=== PATIENT | male | born 1975 | race Caucasian/White ===

== ENCOUNTER 2025-06-11 14:01 | Observation (INO) ==
[2025-06-11] MEDS: PANTOPRAZOLE 40 MG VIAL IV ONE (15:56)
[2025-06-11] MEDS: MAG HYDROX/AL HYDROX/SIMETH 30 ML ORAL.SUSP PO ONE (15:56)
[2025-06-11 16:02] LABS: Basophils # (Auto) 0.01 K/mcL (0.00-0.30); Basophils % (Auto) 0.2 % (0.0-2.0); Eosinophils # (Auto) 0 K/mcL (0.00-0.70); Eosinophils % (Auto) 0 % (0.0-7.0); Hematocrit 43.9 % (40.1-51.0); Hemoglobin 15.1 g/dL (13.7-17.5); Lymphocytes # (Auto) 1.28 K/mcL (1.50-4.80); Lymphocytes % (Auto) 26.2 % (15.5-49.0); Mean Corpuscular HGB Conc 34.4 g/dL (31.0-36.0); Monocytes # (Auto) 0.43 K/mcL (0.10-0.90); Monocytes % (Auto) 8.8 % (1.0-12.0); Neutrophils % (Auto) 64.6 % (38.0-78.0); Platelet Count 185 K/mcL (140-440); RBC 5.00 M/mcL (4.63-6.08); WBC 4.9 K/mcL (4.5-11.0)
[2025-06-11 16:19] LABS: ALT/SGPT 56 U/L (<40); AST/SGOT 31 U/L (<40); Albumin 4.6 gm/dL (3.2-5.2); Albumin/Globulin Ratio 1.7 (1.0-2.3); Alkaline Phosphatase 50 U/L (39-117); Anion Gap 9.0 (8.0-16.0); Bilirubin,Total 1.0 mg/dL (0.1-1.0); Blood Urea Nitrogen 17 mg/dL (6-20); Calcium 9.3 mg/dL (8.6-10.4); Carbon Dioxide 24 mmol/L (22-30); Chloride 106 mmol/L (96-108); Globulin 2.7 gm/dL (2.2-3.7); Glucose 89 mg/dL (70-105); Potassium 4.0 mmol/L (3.3-5.1); Sodium 139 mmol/L (133-145)
[2025-06-11 16:57] LABS: Bilirubin,Urine NEGATIVE (Negative); Color,Urine LT. YELLOW; Glucose,Urine (UA) NEGATIVE (Negative); Ketones,Urine NEGATIVE (Negative); Leukocyte Esterase,Urine NEGATIVE /uL (Negative); PH,Urine 7.0 (5.0-9.0); Protein,Urine NEGATIVE (Negative); Specific Gravity,Urine <= 1.005 (1.000-1.035); Urobilinogen,Urine 0.2 mg/dL
[2025-06-11] MEDS: PIPERACILLIN SODIUM/TAZOBACTAM 3.375 GM in DEXTROSE 5% IN WATER 50 ML IV ONE (17:31)
[2025-06-11] MEDS: 0.9 % SODIUM CHLORIDE 1,000 ML IV SCH (20:08)
[2025-06-11] MEDS: PIPERACILLIN SODIUM/TAZOBACTAM 4.5 GM in DEXTROSE 5% IN WATER 100 ML IV SCH ×2 (20:09→22:15)
[2025-06-12 05:29] LABS: Basophils # (Auto) 0.02 K/mcL (0.00-0.30); Basophils % (Auto) 0.4 % (0.0-2.0); Eosinophils # (Auto) 0 K/mcL (0.00-0.70); Eosinophils % (Auto) 0 % (0.0-7.0); Hematocrit 43.5 % (40.1-51.0); Hemoglobin 14.3 g/dL (13.7-17.5); Lymphocytes # (Auto) 1.47 K/mcL (1.50-4.80); Lymphocytes % (Auto) 31.3 % (15.5-49.0); Mean Corpuscular HGB Conc 32.9 g/dL (31.0-36.0); Monocytes # (Auto) 0.45 K/mcL (0.10-0.90); Monocytes % (Auto) 9.6 % (1.0-12.0); Neutrophils % (Auto) 58.7 % (38.0-78.0); Platelet Count 165 K/mcL (140-440); RBC 4.84 M/mcL (4.63-6.08); WBC 4.7 K/mcL (4.5-11.0)
[2025-06-12 05:48] LABS: ALT/SGPT 49 U/L (<40); AST/SGOT 24 U/L (<40); Albumin 4.1 gm/dL (3.2-5.2); Albumin/Globulin Ratio 1.8 (1.0-2.3); Alkaline Phosphatase 44 U/L (39-117); Anion Gap 6.0 (8.0-16.0); Bilirubin,Direct 0.5 mg/dL (<0.3); Bilirubin,Total 1.3 mg/dL (0.1-1.0); Blood Urea Nitrogen 15 mg/dL (6-20); Calcium 8.7 mg/dL (8.6-10.4); Carbon Dioxide 28 mmol/L (22-30); Chloride 106 mmol/L (96-108); Globulin 2.3 gm/dL (2.2-3.7); Glucose 93 mg/dL (70-105); Phosphorous 3.8 mg/dL (2.5-4.5); Potassium 4.1 mmol/L (3.3-5.1); Sodium 140 mmol/L (133-145); Triglycerides 83 mg/dL (<150); Uric Acid 5.9 mg/dL (2.5-8.0)
[2025-06-12] MEDS: POLYETHYLENE GLYCOL 3350 17 GM PACKET PO SCH (09:03)
[2025-06-12] MEDS: PANTOPRAZOLE 40 MG VIAL IV SCH (16:27)
[2025-06-13 06:31] LABS: Basophils # (Auto) 0.01 K/mcL (0.00-0.30); Basophils % (Auto) 0.2 % (0.0-2.0); Eosinophils # (Auto) 0 K/mcL (0.00-0.70); Eosinophils % (Auto) 0 % (0.0-7.0); Hematocrit 43.2 % (40.1-51.0); Hemoglobin 14.6 g/dL (13.7-17.5); Lymphocytes # (Auto) 1.31 K/mcL (1.50-4.80); Lymphocytes % (Auto) 30.0 % (15.5-49.0); Mean Corpuscular HGB Conc 33.8 g/dL (31.0-36.0); Monocytes # (Auto) 0.40 K/mcL (0.10-0.90); Monocytes % (Auto) 9.2 % (1.0-12.0); Neutrophils % (Auto) 60.6 % (38.0-78.0); Platelet Count 166 K/mcL (140-440); RBC 4.81 M/mcL (4.63-6.08); WBC 4.4 K/mcL (4.5-11.0)
[2025-06-13 06:47] LABS: ALT/SGPT 45 U/L (<40); AST/SGOT 24 U/L (<40); Albumin 4.2 gm/dL (3.2-5.2); Albumin/Globulin Ratio 1.7 (1.0-2.3); Alkaline Phosphatase 44 U/L (39-117); Anion Gap 6.0 (8.0-16.0); Bilirubin,Direct 0.4 mg/dL (<0.3); Bilirubin,Total 1.1 mg/dL (0.1-1.0); Blood Urea Nitrogen 12 mg/dL (6-20); Calcium 8.9 mg/dL (8.6-10.4); Carbon Dioxide 28 mmol/L (22-30); Chloride 106 mmol/L (96-108); Globulin 2.5 gm/dL (2.2-3.7); Glucose 89 mg/dL (70-105); Phosphorous 3.6 mg/dL (2.5-4.5); Potassium 4.0 mmol/L (3.3-5.1); Sodium 140 mmol/L (133-145); Triglycerides 79 mg/dL (<150); Uric Acid 4.4 mg/dL (2.5-8.0)
[2025-06-13] MEDS ORDERED: ROCURONIUM 10 MG/ML ML IV ONE (07:49)
[2025-06-13] MEDS ORDERED: PROPOFOL 200 MG/20 ML VIAL IV ONE (07:49)
[2025-06-13] MEDS ORDERED: DEXAMETHASONE 10 MG/ML VIAL ONE (07:49)
[2025-06-13] MEDS ORDERED: fentaNYL 100 MCG/2 ML VIAL ONE (07:49)
[2025-06-13] MEDS ORDERED: GLYCOPYRROLATE 0.2 MG/ML VIAL IV ONE (07:49)
[2025-06-13] MEDS ORDERED: SUGAMMADEX SODIUM 200 MG/2 ML VIAL IV ONE (07:50)
[2025-06-13] MEDS ORDERED: IPRATROPIUM/ALBUTEROL 3 ML AMPUL.NEB NEB PRN (09:02)
[2025-06-13] MEDS ORDERED: ePHEDrine 50 MG/5 ML SYRINGE (ANEST) IV ONE (09:03)
[2025-06-13] MEDS: ACETAMINOPHEN 1,000 MG/100 ML BAG IV ONE (10:05)
[2025-06-13] MEDS ORDERED: TRANEXAMIC ACID 1,000 MG/10 ML VIAL ONE (10:08)
[2025-06-13] MEDS: METHOCARBAMOL 1,000 MG/10 ML VIAL IV ONE (10:32)
[2025-06-13] MEDS: fentaNYL 100 MCG/2 ML VIAL IV ONE (10:41)
[2025-06-13] MEDS: ONDANSETRON 4 MG/2 ML VIAL IV PRN (11:04)
[2025-06-13] MEDS: HYDROmorphone 0.5 MG/0.5 ML SYRINGE IV PRN (11:04)
[2025-06-13] MEDS: 0.9 % SODIUM CHLORIDE 1,000 ML IV SCH (13:10)
[2025-06-13] MEDS: 0.9 % SODIUM CHLORIDE 10 ML SYRINGE IV SCH (14:53)
[2025-06-13] MEDS: ACETAMINOPHEN 1,000 MG/100 ML BAG IV SCH (15:08)
[2025-06-13] MEDS: KETOROLAC 30 MG/ML VIAL IV PRN (15:09)
[2025-06-13] MEDS: BENZOCAINE ONE 20% 1 SPRAY TOPICAL PRN (17:13)
[2025-06-14 06:36] LABS: ALT/SGPT 315 U/L (<40); AST/SGOT 211 U/L (<40); Albumin 4.0 gm/dL (3.2-5.2); Albumin/Globulin Ratio 1.7 (1.0-2.3); Alkaline Phosphatase 77 U/L (39-117); Anion Gap 8.0 (8.0-16.0); Bilirubin,Direct 0.5 mg/dL (<0.3); Bilirubin,Total 1.0 mg/dL (0.1-1.0); Blood Urea Nitrogen 10 mg/dL (6-20); Calcium 8.5 mg/dL (8.6-10.4); Carbon Dioxide 22 mmol/L (22-30); Chloride 107 mmol/L (96-108); Globulin 2.4 gm/dL (2.2-3.7); Glucose 104 mg/dL (70-105); Phosphorous 3.5 mg/dL (2.5-4.5); Potassium 4.1 mmol/L (3.3-5.1); Sodium 137 mmol/L (133-145); Triglycerides 53 mg/dL (<150); Uric Acid 3.3 mg/dL (2.5-8.0)
[2025-06-14 06:41] LABS: Basophils # (Auto) 0 K/mcL (0.00-0.30); Basophils % (Auto) 0 % (0.0-2.0); Eosinophils # (Auto) 0 K/mcL (0.00-0.70); Eosinophils % (Auto) 0 % (0.0-7.0); Hematocrit 40.2 % (40.1-51.0); Hemoglobin 13.5 g/dL (13.7-17.5); Lymphocytes # (Auto) 1.03 K/mcL (1.50-4.80); Lymphocytes % (Auto) 14.3 % (15.5-49.0); Mean Corpuscular HGB Conc 33.6 g/dL (31.0-36.0); Monocytes # (Auto) 0.50 K/mcL (0.10-0.90); Monocytes % (Auto) 6.9 % (1.0-12.0); Neutrophils % (Auto) 78.5 % (38.0-78.0); Platelet Count 168 K/mcL (140-440); RBC 4.47 M/mcL (4.63-6.08); WBC 7.2 K/mcL (4.5-11.0)
[2025-06-14 15:43] VITALS: TEMP 97.9; O2SAT 100
== END 2025-06-14 15:52 | disposition home or self-care (01) ==
LOC: MEDSUR 14:01 → ED 14:01 → MEDSUR 19:48
PROVIDERS: ADMIT Family Medicine Adult Medicine; ATTEND Family Medicine Adult Medicine